=== PATIENT | female | born 1945 | race Caucasian/White ===

== ENCOUNTER → 2021-02-15 | Outpatient (CLI) | payer MEDICARE ==
[~2021-02-15] MED LIST: CITRAZINE; CRANBERRY; FISH1000 PO; MED FOR ARTHRITIS; OMEP20ER PO; [UNRECOGNIZED DRUG - REMARK]
== END | disposition home or self-care (01) ==
LOC: LAB SHORT 08:00
DX: D36.12 Benign neoplasm of peripheral nerves and autonomic nervous system, upper limb, including shoulder (principal)
CPT/HCPCS: 88305

== ENCOUNTER → 2023-06-04 | Outpatient (CLI) | payer MEDICARE | LOC: LAB 12:37 → LAB SHORT 12:37 | DX: R30.0 Dysuria (principal) | CPT/HCPCS: 87086 ==